=== PATIENT | male | born 2000 | race Caucasian/White ===

== ENCOUNTER 2024-03-16 21:07 | Emergency (ER) | payer OTHER ==
[~2024-03-16] VITALS: Ht 185.4 cm; Wt 83.9 kg
[2024-03-16 21:15] VITALS: BP 129/82; PULSE 69; RESP 18; TEMP 98.9; O2SAT 95
[2024-03-16 22:18] VITALS: BP 113/61; PULSE 60; RESP 18; TEMP 98.9; O2SAT 95
[2024-03-16] MEDS ORDERED: KETO10TA PO (22:50)
[2024-03-16] MEDS: NORCO 10MG PO STA (23:16)
[2024-03-16] MEDS ORDERED: NORCO 10MG PO ONE (23:16)
[2024-03-16 23:38] VITALS: BP 126/71; PULSE 63; RESP 18; TEMP 98.9; O2SAT 95
== END 2024-03-16 23:41 | disposition home or self-care (01) ==
LOC: ER 21:07
DX: S52.122A Displaced fracture of head of left radius, initial encounter for closed fracture (principal); S40.012A Contusion of left shoulder, initial encounter; V29.99XA Rider (driver) (passenger) of other motorcycle injured in unspecified traffic accident, initial encounter; Y93.89 Activity, other specified; Y92.89 Other specified places as the place of occurrence of the external cause; Y99.8 Other external cause status
CPT/HCPCS: 99284; 73030-LT; 73070-LT